=== PATIENT | male | born 1985 | race Caucasian/White ===

== ENCOUNTER 2017-11-27 17:00 | Emergency (ER) | payer BC, OTHER ==
[2017-11-27 17:05] VITALS: BP 127/94; PULSE 88; TEMP 97.9; BMI 28.5
[2017-11-27] MEDS ORDERED: KETOROLAC TROMETHAMINE 30 MG/1 ML VIAL IM ONE (17:39)
[2017-11-27] MEDS ORDERED: KETOROLAC TROMETHAMINE 30 MG/1 ML VIAL ONE (17:43)
--- NOTE | 2017-11-27 17:58 | PDOC ---
History of Present Illness - General Chief Complaint: Pain, Acute Stated Complaint: RIGHT LEG PAIN Time Seen by Provider: 11/27/17 17:05 - History of Present Illness Initial Comments: 11/27/17 17:53 "The patient is a 32 year old male with no PMH who presents to the ED with sudden onset right calf pain after playing basketball about 30 minutes ago. The patient states he took a step and immediately felt pain in his calf, as if someone punched him. He did not attempt to bear weight after the injury. In the ED, he complains of mild pain to the area. He denies any numbness or tingling. He denies any fevers or chills, nausea, vomiting, diarrhea, cough, SOB, CP, or urinary symptoms. " Past History - Past Medical History Allergies/Adverse Reactions: Allergies Allergy/AdvReac Type Severity Reaction Status Date / Time Penicillins Allergy Verified 11/27/17 17:01 Home Medications: Ambulatory Orders NK [No Known Home Medication] 11/27/17 COPD: No - Suicide/Smoking/Psychosocial Hx Smoking Status: No Smoking History: Never smoked Number of Cigarettes Smoked Daily: 0 Hx Alcohol Use: No Drug/Substance Use Hx: No Substance Use Type: None Review of Systems - Review of Systems Comments:: 11/27/17 17:55 "GENERAL/CONSTITUTIONAL: No fever or chills. No weakness. HEAD, EYES, EARS, NOSE AND THROAT: No change in vision. No ear pain or discharge. No sore throat. CARDIOVASCULAR: No chest pain or shortness of breath. RESPIRATORY: No cough, wheezing, or hemoptysis. GASTROINTESTINAL: No nausea, vomiting, diarrhea or constipation. GENITOURINARY: No dysuria, frequency, or change in urination. MUSCULOSKELETAL: Present: right calf pain No neck or back pain. SKIN: No rash NEUROLOGIC: No headache, vertigo, loss of consciousness, or change in strength/ sensation. ENDOCRINE: No increased thirst. No abnormal weight change. HEMATOLOGIC/LYMPHATIC: No anemia, easy bleeding, or history of blood clots. ALLERGIC/IMMUNOLOGIC: No hives or skin allergy. " *Physical Exam - Vital Signs Last Vital Signs Temp Pulse Resp BP Pulse Ox 97.9 F 88 18 127/94 100 11/27/17 17:01 11/27/17 17:01 11/27/17 17:01 11/27/17 17:01 11/27/17 17:01 - Physical Exam Comments: 11/27/17 17:55 "GENERAL: Awake, alert, and fully oriented, in no acute distress HEAD: No signs of trauma EYES: PERRLA, EOMI, sclera anicteric, conjunctiva clear ENT: Auricles normal inspection, hearing grossly normal, nares patent, oropharynx clear without exudates. Moist mucosa NECK: Nontender, no stepoffs, Normal ROM, supple, no lymphadenopathy, JVD, or masses LUNGS: Breath sounds equal, clear to auscultation bilaterally. No wheezes, and no crackles HEART: Regular rate and rhythm, normal S1 and S2, no murmurs, rubs or gallops ABDOMEN: Soft, nontender, normoactive bowel sounds. No guarding, no rebound. No masses EXTREMITIES: 3/5 strength on plantarflexion of R calf, no deformity, no edema or effusion, no ecchymosis, + abnormal vasquez test NEUROLOGICAL: Cranial nerves II through XII intact. 5/5 strength and sensation in all extremities, Normal speech, normal gait, normal cerebellar function SKIN: Warm, Dry, normal turgor, no rashes or lesions noted. " Procedures - Splinting Splint Location: Left: Ankle Pre-Proc Neuro Vasc Exam: normal Hand-Made Type: fiberglass Splint Type: Yes: Short Leg Post-Proc Neuro Vasc Exam: normal Hiram Bandage: yes ED Treatment Course - RADIOLOGY Radiology Studies Ordered: Category Date Time Status ANKLE-RIGHT [RAD] Stat Radiology 11/27/17 17:38 Ordered LEG TIB/FIB-RIGHT [RAD] Stat Radiology 11/27/17 17:38 Ordered - Medications Given in the ED: ED Medications Discontinued Medications Generic Name Dose Route Start Last Admin Trade Name Freq PRN Reason Stop Dose Admin Ketorolac Tromethamine 30 mg 11/27/17 17:39 11/27/17 17:46 Toradol Injection - IM 11/27/17 17:40 Not Given ONCE ONE Medical Decision Making - Medical Decision Making 11/27/17 17:57 32 M with R calf pain. Possible partial vs complete achilles rupture. Pt with no s/s bony injury. - XRs - Pain control - Ortho consult 11/27/17 18:56 XR on my read without acute fx. Spoke with Dr. Hidalgo, ortho online marketer, who recommends posterior splint in plantarflexion and f/u in ortho clinic in 2 days. Pt placed in splint. Pt well appearing, pain under control, clinically stable for DC. I discussed the physical exam findings, ancillary test results and final diagnoses with the patient. I answered all of the patient's questions. The patient was satisfied with the care received and felt comfortable with the discharge plan and treatment plan. The patient agrees to follow up with the primary care physician within 24-72 hours. *DC/Admit/Observation/Transfer Diagnosis at time of Disposition: Achilles tendinitis - Discharge Dispostion Disposition: HOME Condition at time of disposition: Stable - Referrals Referrals: Sancho Hidalgo MD [Staff Physician] - - Patient Instructions Printed Discharge Instructions: DI for Achilles Tendinopathy Additional Instructions: Call the number provided to make an appointment with our orthopedic surgeon within 72 hours. Keep your splint on at all times. Take motrin every 6 hours as needed for pain. If you experience worsening pain, swelling, numbness, or any other concerning symptoms, return to the ER immediately. - Post Discharge Activity - Attestations Physician Attestion: 11/27/17 18:58 I, Dr. Sancho Aquino MD, attest that this document has been prepared under my direction and personally reviewed by me in its entirety. I further attest, that it accurately reflects all work, treatment, procedures and medical decision -making performed by me.
[2017-11-27] MEDS ORDERED: IBUPROFEN 400 MG TABLET (FP) PO ONE ×2 (18:07→18:09)
== END 2017-11-27 19:11 | disposition home or self-care (01) ==
LOC: FER 17:00
DX: M76.61 Achilles tendinitis, right leg (principal); Z88.0 Allergy status to penicillin
CPT/HCPCS: 73590-TC-RT-FY; 73610-TC-RT-FY; 99282-25